=== PATIENT | female | born 1965 | race African-American/Black ===

== ENCOUNTER 2020-05-19 05:34 | Emergency (ER) | payer BC, OTHER ==
[~2020-05-19] VITALS: Ht 170.2 cm; Wt 83.7 kg
--- NOTE | 2020-05-19 05:38 | PHYS DOC ---
Past History Past Medical History: No Pertinent History Past Surgical History: Appendectomy, Hysterectomy, Other Past Surgical History History carpal tunnel release right wrist Smoking: Cigarettes, Less than 1pk/day Alcohol Use: None Drug Use: None General Adult HPI: HPI: " My Lt hand been giving me fits.. all night.. It hurts just like my right hand when I had carpal tunnel syndrome... I eventually had to have a tendon release in 2016 to this right hand..... I am worried I have the same thing here in my left hand and my left hand is my dominant hand... 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 Pain is exacerbated by percussion of flexor tendon in the wrist left hand.. This exhibits a shocklike sensation to her fingers. Patient is left-macias d dominant. Capillary refill is equal to right hand. Her Lt. hand sensation is equal to right hand. Capillary refill is 2 seconds in both hands. Patient has had previous carpal tunnel release in 2016 on right hand. No recent travel. No specific ill contacts. No history of fever or chills. No history of immune suppression. Pt. follows with Dr. Lloyd. Review of Systems: Review of Systems: Constitutional: Denies fever or chills Eyes: Denies change in visual acuity HENT: Denies nasal congestion or sore throat Respiratory: Denies cough or shortness of breath Cardiovascular: Denies chest pain or edema GI: Denies abdominal pain, nausea, vomiting, bloody stools or diarrhea : Denies dysuria Musculoskeletal: Complains of Lt hand and wrist pain Integument: Denies rash Neurologic: Denies headache, focal weakness or sensory changes Endocrine: Denies polyuria or polydipsia Lymphatic: Denies swollen glands Psychiatric: Denies depression or anxiety Heart Score: Risk Factors: Risk Factors: DM, Current or recent (<one month) smoker, HTN, HLP, family history of CAD, obesity. Risk Scores: Score 0 - 3: 2.5% MACE over next 6 weeks - Discharge Home Score 4 - 6: 20.3% MACE over next 6 weeks - Admit for Clinical Observation Score 7 - 10: 72.7% MACE over next 6 weeks - Early Invasive Strategies Family History: Family History: Noncontributory Current Medications: Current Meds: See nursing for home meds Allergies: Allergies: No known drug allergies Physical Exam: PE: Constitutional: Moderate acute distress, non-toxic appearance. [] HENT: Normocephalic, atraumatic, bilateral external ears normal, oropharynx moist, no oral exudates, nose normal. [] Eyes: PERRLA, EOMI, conjunctiva normal, no discharge. [] Neck: Normal range of motion, no tenderness, supple, no stridor. [] Cardiovascular:Heart rate regular rhythm, no murmur [] Lungs & Thorax: Bilateral breath sounds equal at apex on auscultation. Few scattered wheezes. Abdomen: Bowel sounds normal, soft, no tenderness, no masses, no pulsatile masses. Obese. Old surgical scars. Skin: Warm, dry, no erythema, no rash. [] Back: No tenderness, no CVA tenderness. [] Extremities: No tenderness, no cyanosis, no clubbing, ROM intact, no edema. [] Scar on right wrist from previous tendon release. Left hand tender-Tinel sign Neurologic: Alert and oriented X 3, normal motor function, normal sensory function, no focal deficits noted. [] Psychologic: Affect anxious judgement normal, mood normal. [] EKG: EKG: [] Radiology/Procedures: Radiology/Procedures: [] Course & Med Decision Making: Course & Med Decision Making Pertinent Labs and Imaging studies reviewed. (See chart for details) Patient is ice packs as needed. Wear splint. Follow-up with orthopedics given Dr. Butler's number for follow-up. Suspect will need carpal tunnel release. Tylenol and ibuprofen for pain. From our pain may take Vicoprofen. Impression: 1. Carpal tunnel syndrome left wrist [] Dragon Disclaimer: Dragon Disclaimer: This electronic medical record was generated, in whole or in part, using a voice recognition dictation system. Departure Departure: Disposition: 01 HOME/RESIDENCE PRIOR TO ADM Condition: STABLE Referrals: BRIGIDO LLOYD MD (PCP) Scripts Hydrocodone/Ibuprofen (HYDROCODONE-IBUPROFEN 7.5-200 ) 1 Each Tablet 1 TAB PO PRN Q6HRS PRN for PAIN, #30 TAB 0 Refills Prov: DOE HARRIS MD 05/19/20 Hydrocodone/Ibuprofen (HYDROCODONE-IBUPROFEN 7.5-200 ) 1 Each Tablet 1 TAB PO PRN Q6HRS PRN for PAIN, #30 TAB 0 Refills Prov: DOE HARRIS MD 05/19/20 Justification of Admission: Justification of Admission: Justification of Admission Dx: N/A Trevor Disclaimer This chart was dictated in whole or in part using Voice Recognition software in a busy, high-work load, and often noisy Emergency Department environment. It may contain unintended and wholly unrecognized errors or omissions. Dragon Disclaimer This chart was dictated in whole or in part using Voice Recognition software in a busy, high-work load, and often noisy Emergency Department environment. It may contain unintended and wholly unrecognized errors or omissions. DOE HARRIS MD May 19, 2020 05:38
[2020-05-19] MEDS ORDERED: HYDR-1179 PO (06:00)
[2020-05-19] MEDS ORDERED: MORPHINE SULFATE 10 MG/ML SYRINGE. SQ ONE (06:30)
[2020-05-19 06:40] VITALS: BP 143/91
== END 2020-05-19 06:45 | disposition home or self-care (01) ==
LOC: ER 05:34
DX: G56.02 Carpal tunnel syndrome, left upper limb (principal)
CPT/HCPCS: 29125; 96372; 99283; J2270

== ENCOUNTER 2020-08-16 22:18 | Emergency (ER) | payer BC ==
[~2020-08-16] VITALS: Ht 170.2 cm; Wt 89.0 kg
[~2020-08-16 22:18] MED LIST: HYDR-1179 PO
--- NOTE | 2020-08-16 22:59 | PHYS DOC ---
Past History Past Medical History: Depression, Other Additional Past Medical Histor: carpal tunnel Past Surgical History: Appendectomy, Hysterectomy, Other Additional Past Surgical Histo: lt breast bx; rt carpal tunnel; oral surgery Smoking: Cigarettes, Less than 1pk/day Alcohol Use: Occasionally Drug Use: None General Adult EDM: Chief Complaint: FATIGUE HPI: HPI: Patient is a [age] year old [sex] who presents with [] Review of Systems: Review of Systems: Constitutional: Denies fever or chills Eyes: Denies redness or eye pain HENT: Denies nasal congestion or sore throat Respiratory: Denies cough or shortness of breath Cardiovascular: Denies chest pain or palpitations GI: Denies abdominal pain, nausea, or vomiting : Denies dysuria or hematuria Musculoskeletal: Denies back pain or joint pain Integument: Denies rash or skin lesions Neurologic: Denies headache, focal weakness or sensory changes Complete systems were reviewed and found to be within normal limits, except as documented in this note. Current Medications: Current Meds: Current Medications Medications (Trade) Dose Ordered Sig/Jeannette Start Time Stop Time Status Last Admin Dose Admin Dexamethasone (Decadron) 10 mg 1X ONCE 08/16/20 23:00 08/16/20 23:01 Allergies: Allergies: Allergies Coded Allergies Type Severity Reaction Last Updated Verified No Known Drug Allergies 05/19/20 No Physical Exam: PE: Constitutional: Well developed, well nourished, no acute distress, non-toxic appearance HENT: Normocephalic, atraumatic Eyes: PERRL, EOMI, conjunctiva normal, no discharge Neck: Normal range of motion, no tenderness, supple Lungs & Thorax: No respiratory distress, equal chest rise and fall Abdomen: Soft, no tenderness Skin: Warm, dry, no erythema, no rash Back: No tenderness, no CVA tenderness Extremities: No tenderness, ROM intact, no edema Neurologic: Alert and oriented X 3, normal motor function, normal sensory function, no focal deficits noted Psychologic: Affect normal, judgment normal EKG: EKG: [] Radiology/Procedures: Radiology/Procedures: [] Course & Med Decision Making: Course & Med Decision Making Pertinent Labs and Imaging studies reviewed. (See chart for details) Patient stable for discharge with outpatient follow-up with PCP. Discussed find ings and plan with patient, who acknowledges understanding and agreement. COVID-19 CRITERIA: The patient was evaluated during the global COVID-19 pandemic, and that diagnosis was suspected/considered upon their initial presentation. Their evaluation, treatment and testing was consistent with current guidelines for patients who present with complaints or symptoms that may be related to COVID-19. Trevor Disclaimer: Trveor Disclaimer: This electronic medical record was generated, in whole or in part, using a voice recognition dictation system. Departure Departure: Impression: Primary Impression: Viral syndrome Additional Impression: Suspected 2019 novel coronavirus infection Disposition: DC HOME SELF CARE/HOMELESS Condition: STABLE Referrals: BRIGIDO LLOYD MD (PCP) Patient Instructions: Incentive Spirometer, Viral Syndrome Additional Instructions: You have been tested for or diagnosed with COVID-19. It is an infection caused by a new type of coronavirus. COVID-19 will cause cold-like or mild flu symptoms in most. It can cause more severe symptoms like problems breathing in some. There is no treatment for COVID-19. The body will clear the infection over time. Self-care will help to ease discomfort. Steps to Take: Self-Care Rest as needed. Healthy habits may help you feel better. Steps include: Choose healthy foods including fruits and vegetables. Drink water throughout the day. Get plenty of sleep each night. If you smoke, try to quit. It may ease breathing. Avoid alcohol. Keep Others Healthy The virus can spread to others. Droplets are released every time you sneeze or cough. The droplets can get into the mouth, nose, or eyes of people near you and lead to infection. To lower the chances of spreading COVID-19 to others: Stay at home until your doctor has said it is safe to leave. If you tested positive this will mean staying isolated until both of the following are true: At least 7 days have passed since the start of illness. You are free of fever for at least 72 hours without the use of medicine. During this time: - Avoid public areas, events, or transportation. Do not return to work or school until your doctor has said it is safe to do so. - Call ahead if you need to go to a medical center. Let them know you may have COVID-19. It will help them guide you where to go. They may also ask you to wear a facemask when you come to the office. - If you call for emergency medical services, let them know you may have COVID- 19. While at home: - Try to avoid close contact with others. Stay about 6 feet away. - If possible, spend most of your time in a separate room from others. - Use a face mask if you will be in close contact with others such as sharing a room or vehicle. - Have someone wipe down common surfaces in the home. Use household human services care specialist every day on areas like doorknobs, counters, or sinks. - Cough or sneeze into a tissue. Throw the tissue away right after use. If a tissue is not available, cough or sneeze into your elbow. - Wash your hands often. Wash them after sneezing or coughing. Use soap and water and wash for at least 20 seconds. Alcohol based hand cooker cleaner can be used if soap and water is not available. - Do not prepare food for others. Avoid sharing personal items like forks, spoons, or toothbrushes. - Avoid close contact with pets while you are sick. There is no evidence of the virus passing to pets. This is a safety step until more is known about this virus. Isolation can be frustrating. Social interaction can help. Keep in touch with friends and family through phone and tech options. You can still interact with others in your home, just keep a safe distance of about 6 feet. Follow-up: Your doctors office will check in with you to see if there are any changes in your health. You may be asked to keep track of symptoms to share with them. They will also let you know when you are clear to be in public again. Problems to Look Out For: Contact your doctor if your recovery is not going as you expect. Get emergency care if you have problems such as: - Trouble breathing - Nonstop chest pain or pressure - Changes in awareness, confusion, or problems waking - Lips or face have bluish color - Worsening of symptoms If you think you have an emergency, call for emergency medical services right away. As taken from [facility] COVID-19 Assessment COVID-19 Patient Risks: Age 65 or older: No Sign of co-morbidity: No Exp to person + for COVID: Yes Exp to PUI: No Travel from affected area: No Lower respiratory symptoms: Yes Fever: Yes Other: Yes PPE Use: Full PPE with N95 mask or PAPR: Yes JOSUE ALVAREZ DO Aug 16, 2020 22:58
[2020-08-16] MEDS ORDERED: DEXAMETHASONE 4 MG TABLET PO ONE (23:00)
--- NOTE | 2020-08-16 23:14 | RAD ---
CHEST AP ONLY History: Reason: cough, fatigue / Spl. Instructions: / History: Comparison: None. Findings: No consolidation or pleural effusion. Normal heart size. No pneumothorax. Impression: 1. No acute cardiopulmonary process. Electronically signed by: Joseph Yun DO (08/16/2020 11:11 PM) [facility]
[2020-08-16 23:42] VITALS: BP 139/84
== END 2020-08-16 23:42 | disposition home or self-care (01) ==
LOC: ER 22:18
DX: B34.9 Viral infection, unspecified (principal); F17.210 Nicotine dependence, cigarettes, uncomplicated; Z20.828 Contact with and (suspected) exposure to other viral communicable diseases
CPT/HCPCS: 71045; 99284; C9803; J8540; U0003

== ENCOUNTER 2020-11-16 08:59 | Emergency (ER) | payer BC ==
[~2020-11-16] VITALS: Ht 170.2 cm; Wt 89.0 kg
[2020-11-16] MEDS ORDERED: FLUORESCEIN 1MG EYE STRIP. OS ONE (09:30)
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
[2020-11-16 11:45] VITALS: BP 132/80
[2020-11-16] MEDS ORDERED: TETRACAINE 0.5% OPHTH SOLUTION 4ML BOTTLE. ONE (11:49)
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
[2020-11-16] MEDS ORDERED: ERYT1OIN6 OS (12:25)
[2020-11-16] MEDS ORDERED: IBUPROFEN 600 MG TABLET. PO ONE ×2 (12:32→12:45)
[2020-11-16] MEDS ORDERED: diphenhydrAMINE HCL 25 MG CAPSULE PO ONE ×2 (12:32→12:45)
[2020-11-16] MEDS ORDERED: DEXAMETHASONE 4 MG TABLET ONE (12:32)
[2020-11-16] MEDS ORDERED: DEXAMETHASONE 4 MG TABLET PO ONE (12:45)
== END 2020-11-16 12:38 | disposition home or self-care (01) ==
LOC: ER 08:59
DX: S00.12XA Contusion of left eyelid and periocular area, initial encounter (principal); H11.32 Conjunctival hemorrhage, left eye; F17.210 Nicotine dependence, cigarettes, uncomplicated; X58.XXXA Exposure to other specified factors, initial encounter; Y93.89 Activity, other specified; Y92.89 Other specified places as the place of occurrence of the external cause; Y99.8 Other external cause status
CPT/HCPCS: 70450; 70486; 72125; 99285; J8540; Q0163

== ENCOUNTER → 2021-09-27 | Outpatient (CLI) | payer OTHER ==
[~2021-09-27] MED LIST changes: +ERYT1OIN6 OS
--- NOTE | 2021-09-28 13:43 | RAD ---
Exam Date: 09/27/2021 1:36 PM XR HAND_RIGHT 2 VIEWS Indication: Reason: RIGHT HAND PAIN AND SWELLING / Spl. Instructions: Pt fell yesterdday, pain 2nd di git. / History: . FINDINGS/ IMPRESSION: No acute fracture or dislocation. Alignment and joint spaces are maintained. The soft tissues are w ithin normal limits. Electronically signed by: Walt Ny MD (09/28/2021 1:41 PM) [id number]
== END ==
LOC: RAD 13:24
PROVIDERS: ATTEND Registered Nurse
DX: M79.641 Pain in right hand (principal)
CPT/HCPCS: 73120

== ENCOUNTER 2021-10-22 11:36 | Emergency (ER) | payer SELFPAY ==
[~2021-10-22] VITALS: Ht 170.2 cm; Wt 89.0 kg
[2021-10-22 11:48] VITALS: BP 141/83
--- NOTE | 2021-10-22 11:53 | PHYS DOC ---
Past History Past Medical History: No Pertinent History Additional Past Medical Histor: carpal tunnel (LEE VARELA APRN) Past Surgical History: Appendectomy, Hysterectomy Additional Past Surgical Histo: lt breast bx; rt carpal tunnel; oral surgery (LEE VARELA APRN) Smoking: Cigarettes, Less than 1pk/day Alcohol Use: Occasionally Drug Use: None (LEE VARELA APRN) General Adult EDM: Chief Complaint: HAND PROBLEM HPI: HPI: Patient is a 56-year-old female who presents to the emergency department for left hand pain and swelling. Patient reports that she did a lot of cleaning yesterday and woke up this morning with the symptoms. She denies any injuries but she does have a scratch to the top of her left hand with some mild redness surrounding. Patient denies any decreased range of motion but reports increased pain with movement or decrease sensation to her extremity. (LEE VARELA APRN) Review of Systems: Review of Systems: Musculoskeletal: See HPI Integument: See HPI Neurologic: See HPI (LEE VARELA APRN) Allergies: Allergies: Allergies Coded Allergies Type Severity Reaction Last Updated Verified No Known Drug Allergies 05/19/20 No (LEE VARELA APRN) Physical Exam: PE: Constitutional: Well developed, well nourished, no acute distress, non-toxic appearance. [] HENT: Normocephalic, atraumatic, bilateral external ears normal, oropharynx moist, no oral exudates, nose normal. [] Eyes: PERRL, EOMI, conjunctiva normal, no discharge. [] Neck: Normal range of motion, no stridor Cardiovascular: Normal peripheral perfusion Lungs & Thorax: Normal work of breathing, no tachypnea Abdomen: Soft and flat Skin: Warm, dry, no erythema, no rash. [] Back: Normal range of motion Extremities: No tenderness, no cyanosis, no clubbing, ROM intact, no edema. [] Left hand: Small 0.5 cm abrasion noted to the dorsal aspect of patient's left hand with surrounding erythema and swelling, no crepitus, range of motion intact, neuro intact, no obvious deformity Neurologic: Alert and oriented X 3, normal motor function, normal sensory fun ction, no focal deficits noted. [] Psychologic: Affect normal, judgement normal, mood normal. [] (LEE VARELA APRN) EKG: EKG: [] (LEE VARELA APRN) Radiology/Procedures: Radiology/Procedures: []PROCEDURE: HAND LEFT 3V EXAM: XR HAND_LEFT 3 VIEWS 10/22/2021 11:50 AM CLINICAL INDICATION: Left hand pain and swelling, no known injury. COMPARISON: Right hand radiograph 09/27/2021 TECHNIQUE: 3 views of the left hand. FINDINGS: No acute fracture. Alignment is normal. Joint spaces are maintained. No erosions or productive changes. Soft tissue is normal. IMPRESSION: No acute abnormality of the left hand. Electronically signed by: Devorah Santiago MD (10/22/2021 11:53 AM) [id number] DICTATED AND SIGNED BY: DEVORAH SANTIAGO MD DATE: 10/22/211151 CC: BRIGIDO LLOYD MD; LEE VARELA APRN ~MTH0 0 (LEE VARELA APRN) Heart Score: C/O Chest Pain: N/A Risk Factors: Risk Factors: DM, Current or recent (<one month) smoker, HTN, HLP, family history of CAD, obesity. Risk Scores: Score 0 - 3: 2.5% MACE over next 6 weeks - Discharge Home Score 4 - 6: 20.3% MACE over next 6 weeks - Admit for Clinical Observation Score 7 - 10: 72.7% MACE over next 6 weeks - Early Invasive Strategies (LEE VARELA APRN) Course & Med Decision Making: Course & Med Decision Making Pertinent Labs and Imaging studies reviewed. (See chart for details) [] Patient presents to the emergency department for pain, redness and swelling noted to the dorsal aspect of her left hand. Patient denies any injuries however, she does have an abrasion noted to that area. She reports that symptoms started after doing cleaning for last night. X-ray was performed to rule out any fractures that showed no acute findings. Patient educated on rice protocol. She'll be discharged home with an antibiotic for cellulitis. Advised to take anti-inflammatory medications. I discussed with patient all findings and diagnostic testing as well as the need to follow-up with PCP for further evaluation and treatment or return to the ER if any new or worsening symptoms. Strict return precautions were also discussed at length. Patient voiced understanding and agreement with the plan. Patient is hemodynamically stable at the time of disposition. (LEE VARELA APRN) Dragon Disclaimer: Dragon Disclaimer: This electronic medical record was generated, in whole or in part, using a voice recognition dictation system. (LEE VARELA APRN) Attending Co-Sign The patient was seen and interviewed as well as examined at the bedside. The chart was reviewed. The case was discussed. Agree with the plan of care. (TYLOR FELDMAN DO) Departure Departure: Impression: Primary Impression: Hand pain Qualified Codes: M79.642 - Pain in left hand Additional Impression: Cellulitis Qualified Codes: L03.90 - Cellulitis, unspecified Disposition: HOME / SELF CARE / HOMELESS Condition: GOOD Referrals: BRIGIDO LLOYD MD (PCP) Patient Instructions: Cellulitis, [id number], RICE - Routine Care for Injuries Additional Instructions: You were seen in the emergency department today for left hand swelling, pain and redness. An x-ray was performed that showed no acute findings. This will likely improve over time. Your symptoms may be improved by something called the rice protocol. This is rest, ice, compression, elevation. Please follow-up when doing intense exercises that may make the pain worse. Sometimes gentle stretching can provide relief, but be careful to injury. It is important to perform gentle range of motion exercises to prevent stiff joints and chronic pain. Use ice packs over the affected areas to help decrease your pain. For the first 24 hours you can apply ice 20 minutes on 20 minutes off for 4 times per day. Sometimes compression such as the use of an Timoteo wrap can help with the swelling. You may also elevate the affected area to help with the swelling. Please take Tylenol and ibuprofen for pain at home. It does appear that you have an abrasion on your hand with some redness surrounding it which could be the cause to your pain and swelling so you'll be treated with an antibiotic for skin infection. Please start and finish the antibiotic completely. Follow-up with your primary care provider on Saturday regarding your ER visit. Return to the emergency department if you develop any new injuries, increased swelling, decreased range of motion or decreased sensation to your hand. Scripts Cephalexin (KEFLEX) 500 Mg Capsule 1 CAP PO BID for infection for 7 Days, #14 CAP 0 Refills Prov: LEE VARELA APRN 10/22/21 LEE VARELA APRN Oct 22, 2021 11:53 TYLOR FELDMAN DO Oct 23, 2021 11:24
--- NOTE | 2021-10-22 11:56 | RAD ---
EXAM: XR HAND_LEFT 3 VIEWS 10/22/2021 11:50 AM CLINICAL INDICATION: Left hand pain and swelling, no known injury. COMPARISON: Right hand radiograph 09/27/2021 TECHNIQUE: 3 views of the left hand. FINDINGS: No acute fracture. Alignment is normal. Joint spaces are maintained. No erosions or product effie changes. Soft tissue is normal. IMPRESSION: No acute abnormality of the left hand. Electronically signed by: Devorah Sanitago MD (10/22/2021 11:53 AM) [id number]
[2021-10-22] MEDS ORDERED: CEPH500C PO (12:03)
== END 2021-10-22 12:29 | disposition home or self-care (01) ==
LOC: ER 11:36
DX: L03.114 Cellulitis of left upper limb (principal); F17.210 Nicotine dependence, cigarettes, uncomplicated
CPT/HCPCS: 73130; 99283